=== PATIENT | male | born 1950 | race Two or more races ===

== ENCOUNTER 2019-03-06 04:00 | Emergency (ER) | payer SELFPAY ==
--- NOTE | 2019-03-06 04:08 | PDOC ---
History of Present Illness - General Chief Complaint: Laceration Stated Complaint: HEAD LAC History Source: Patient Exam Limitations: No Limitations - History of Present Illness Initial Comments: 03/06/19 04:10 69 YOM with h/o CABG, AAA s/p repair, Afib on coumadin, HTN, presenting with left eyebrow laceration and bleeding since 2AM. at that time, he had returned from celebrating with his sons since they live in different areas, had been drinking IPA beer since the afternoon. he was using the toilet, when he got up, lost his balance and struck his head against the wall. no LOC or fall. no prodromal sx including MARTINEZ, dizziness, cp or sob. unclear tetanus status. Review of Systems Constitutional: no weakness/sweats HEENT: no headache, no dizziness. no eye pain or discharge. no visual or hearing disturbances. Chest: no chest pain, syncope Resp: no shortness of breath or cough. Abdomen: no abdominal pain, nausea, vomiting. MUSCULOSKELETAL: No joint pain and swelling. No muscle pain/arthralgias. Back: no back pain SKIN: no redness or skin changes, no discharge, no rash. +eyebrow laceration. Hematologic: +easy bruising/bleeding. NEUROLOGIC: No weakness, numbness or tingling. Allergic/Immunologic: amoxicillin allergies All other systems reviewed and negative, or as documented in HPI. Physical exam: General: Well appearing, awake and alert, NAD. pleasant HEENT: NCAT, PERRL, EOMI, clear conjunctiva, anicteric, moist mucus membranes, clear oropharynx, no oral lesions.. dentition intact +left upper eyebrow laceration measuring 4cm, irregularly shaped, +contused tissue, +bleeding B/L T. M clear, no hemotympanum. +left upper eyelid edema, ecchymosis noted. no raccoon eyes. Neck: neck supple, FROM; no C spine tenderness. Resp: CTAB, normal and even respirations, no respiratory distress CVS: irregularly irregular, soft holosystolic murmur, 2+ peripheral pulses throughout, no peripheral edema Chest: no chest wall tenderness Abdomen: soft, NTND, no rebound or guarding. Back: nontender, normal inspection and ROM MSK: no edema, BUSTAMANTE x4, ROM intact. No clubbing or cyanosis. normal bulk and tone. Extremities: no focal tenderness. Neuro: alert, oriented appropriately; no focal neurologic deficits, CN II-XII grossly intact. speech clear. Psych: Calm and cooperative Skin: warm and well perfused, cap refill <2 sec, normal color, +left upper eyebrow laceration measuring 4cm, irregularly shaped, +contused tissue, + bleeding 03/06/19 06:17 Past History - Past Medical History Allergies/Adverse Reactions: Allergies Allergy/AdvReac Type Severity Reaction Status Date / Time amoxicillin Allergy Verified 03/06/19 04:02 Home Medications: Ambulatory Orders Coumadin 03/06/19 Hydrochlorothiazide 03/06/19 Procedures - Laceration/Wound Repair Left Face Wound Length: 2.6 to 5.0 cm Wound Explored: clean Wound's Depth, Shape: irregular, stellate, contused tissue Irrigated w/ Saline: Yes Betadine Prep: No Anesthesia: 1% Lidocaine Amount of Anesthetic (ccs): 2 Wound Debrided: minimal Wound Repaired With: Sutures Suture Size/Type: 5:0 Number of Sutures: 8 Layer Closure: No Sterile Dressing Applied: Yes Splint Applied: No Progress: 03/06/19 05:56 +bleeding during procedure, controlled with compression and wound approximation ED Treatment Course - LABORATORY CBC & Chemistry Diagram: 03/06/19 04:35 Medical Decision Making - Medical Decision Making 03/06/19 04:30 Vital Signs Temp Pulse Resp BP Pulse Ox 97.4 F L 63 16 115/61 95 03/06/19 04:10 03/06/19 04:10 03/06/19 04:10 03/06/19 04:10 03/06/19 04:10 VS reviewed wnl DDX ICH/SDH, EDH, closed head injury laceration, contusion as pt is on coumadin, head CT warranted CTs with supraorbital hematoma, left eyebrow hematoma; no intracranial bleeding ; no C spine fx or subluxation noted tdap updated The laceration was identified to be 4 cm in length - irregularly shaped, contused tissue and bleeding and located at left upper eyebrow. The laceration was cleansed with sterile water and chlorhexadine. Local anesthesia was obtained by injecting 1% lidocaine ~2ml at the laceration site. The laceration was then irrigated with 500 cc of high-pressure irrigation. The wound was explored and no foreign bodies were found. There were no tendon or nerve lacerations. The wound was closed with 5-0 nylon suture type, x8 sutures, and technique simple interrupted. A sterile dressing was then applied and anticipatory guidance was provided. INR subtherpaeutic, CBC wnl, H/H wnl D/W pt and family at bedside, monitor next 12-24 hours for neuro changes, sz, headache, dizziness, visual/hearing changes confusion, or other changes, vomiting. this could indicate delayed bleeding in setting of coumadin use wound care instructions. topical bacitracin. monitor for s/s infection and prevention return in 5 days for suture removal 03/06/19 04:42 03/06/19 05:57 03/06/19 06:17 Discharge - Discharge Information Problems reviewed: Yes Clinical Impression/Diagnosis: Laceration of left eyebrow without complication Qualifiers: Encounter type: initial encounter Qualified Code(s): S01.112A - Laceration without foreign body of left eyelid and periocular area, initial encounter Head injury Qualifiers: Encounter type: initial encounter Qualified Code(s): S09.90XA - Unspecified injury of head, initial encounter Condition: Stable Disposition: HOME - Admission No - Follow up/Referral - Patient Discharge Instructions Patient Printed Discharge Instructions: How to Care for a Laceration After Repair, DI for Laceration Repair -- Simple, DI for Closed Head Injury, DI for Warfarin Therapy Additional Instructions: Wound dressed with topical Bacitracin and sterile gauze. Follow up with your primary care doctor within 48-72 hours for a wound check. Keep sutures covered and dry for 24 hours then clean with soap and water daily - do not scrub. Apply bacitracin or neosporin twice a day with warm soaks and cover with gauze/ dressings. Return to ED for suture removal 5 days. Return to the ED for any worsening pain, redness, streaking (red lines), swelling, fever or chills. Keep the wound clean and as dry as possible. Do not immerse or soak the wound in water. This means no swimming, washing dishes (unless thick rubber gloves are used), baths, or hot tubs until the stitches are removed or after about two weeks if absorbable suture material was used. Leave original bandages on the wound for the first 24 hours. After this time, showering or rinsing is recommended, rather than bathing. the first day, remove old bandages and gently cleanse the wound with soap and water. Cleansing twice a day prevents buildup of debris and will result in easier suture removal. you had a CT head done today which was negative for bleeding or fracture of your spine, skull. no bleeding in your brain. continue to monitor for signs and symtpoms of head injury in the next 12-24 hours as you are on a blood thinner. if worsening symptoms of potential head injury, including headache, dizziness, vomiting, confusion, seizure, visual or hearing disturbances, weakness, numbness , tingling - return sooner for repeat imaging. - Post Discharge Activity
[2019-03-06 04:14] VITALS: BP 115/61; PULSE 63; TEMP 97.4; BMI 29.0
[2019-03-06] MEDS ORDERED: DIPHTH,PERTUSS(ACELL),TET 0.5 ML DISP.SYRIN IM ONE ×2 (04:24→04:28)
[2019-03-06 06:08] LABS: BASO % 0.9 % (0-2.0); EOS % 7.4 % (0-4.5); HEMATOCRIT 43.6 % (35.4-49); HEMOGLOBIN 15.3 GM/dL (11.7-16.9); LYMPH % 31.7 % (8-40); MCH 32.1 pg (25.7-33.7); MCHC 35.2 g/dl (32.0-35.9); MEAN CELL VOLUME 91.3 fl (80-96); MONO % 10.8 % (3.8-10.2); NEUT % 49.2 % (42.8-82.8); PLATELET COUNT 240 K/MM3 (134-434); RBC 4.78 M/mm3 (4.00-5.60); RDW 13.7 % (11.9-15.9); WHITE BLOOD COUNT 6.9 K/mm3 (4.0-10.0)
[2019-03-06 06:11] LABS: INR 1.03 (0.83-1.09); PROTHROMBIN TIME (PATIENT) 12.2 SEC (9.7-13.0)
== END 2019-03-06 06:17 | disposition home or self-care (01) ==
LOC: FER 04:00
PROC: 0HQ1XZZ Repair Face Skin, External Approach (ICD-10-PCS; principal; 2019-03-06)
PROC: 3E0234Z Introduction of Serum, Toxoid and Vaccine into Muscle, Percutaneous Approach (ICD-10-PCS; 2019-03-06)
DX: S01.112A Laceration without foreign body of left eyelid and periocular area, initial encounter (principal); I48.91 Unspecified atrial fibrillation; I10 Essential (primary) hypertension; Z88.8 Allergy status to other drugs, medicaments and biological substances; Z79.01 Long term (current) use of anticoagulants; Z95.1 Presence of aortocoronary bypass graft; I71.4 Abdominal aortic aneurysm, without rupture; W22.01XA Walked into wall, initial encounter; Y93.89 Activity, other specified; Y92.89 Other specified places as the place of occurrence of the external cause
CPT/HCPCS: 36415; 70450-TC; 72125-TC; 85025; 85610; 90715; 99282-25